=== PATIENT | female | born 1995 | race Caucasian/White ===

== ENCOUNTER 2020-12-12 13:43 | Emergency (ER) | payer OTHER ==
[~2020-12-12] VITALS: Ht 165.1 cm; Wt 80.7 kg
[2020-12-12] MEDS ORDERED: METOPROLOL SUCC50 MG PO (13:55)
[2020-12-12] MEDS ORDERED: LEVO-T25 MCG PO (13:55)
[2020-12-12] MEDS ORDERED: SINGULAIR 10 MG10 M1 PO (13:56)
[2020-12-12 14:05] LABS: URINE BILIRUBIN NEGATIVE (Negative); URINE BLOOD TRACE (Negative); URINE CLARITY CLEAR; URINE COLOR YELLOW; URINE GLUCOSE-RANDOM NEGATIVE (Negative); URINE KETONES NEGATIVE (Negative); URINE LEUKOCYTES-REFLEX NEGATIVE (Negative); URINE NITRITE-REFLEX NEGATIVE (Negative); URINE PROTEIN NEGATIVE (Negative); URINE SPECIFIC GRAVITY 1.015 (1.005-1.030); URINE UROBILINOGEN 0.2 E.U./dl (0.2-1.0)
[2020-12-12 14:20] VITALS: BP 135/94
== END 2020-12-12 14:21 | disposition home or self-care (01) ==
LOC: M.ERS 13:43
PROVIDERS: Nurse Practitioner Psychiatric/Mental Health
DX: N91.2 Amenorrhea, unspecified (principal); R19.01 Right upper quadrant abdominal swelling, mass and lump; Z79.899 Other long term (current) drug therapy; Z88.0 Allergy status to penicillin; Z88.1 Allergy status to other antibiotic agents; Z91.040 Latex allergy status